=== PATIENT | female | born 1990 | race Caucasian/White ===

== ENCOUNTER 2018-12-17 08:13 | Day surgery (SDC) | payer OTHER ==
[~2018-12-17] VITALS: Ht 177.8 cm; Wt 97.1 kg
[~2018-12-17 08:13] MED LIST: LIDOCAINE 1% MDV 20ML VIAL SQ PRN; LR 1,000 ML IV ONE; NUVAMIS2 PV
[2018-12-17] MEDS ORDERED: PROPOFOL 200 MG/20 ML VIAL As Ordered ONE ×2 (08:21→09:33)
[2018-12-17] MEDS ORDERED: KETOROLAC 60 MG/2 ML VIAL (J1885) As Ordered ONE (08:21)
[2018-12-17 09:14] LABS: HCG, SERUM QUALITATIVE NEGATIVE (NEGATIVE)
[2018-12-17] MEDS ORDERED: LIDOCAINE 2% INJ 100 MG/5 ML SDV (FOR ANES.) As Ordered ONE (09:33)
[2018-12-17] MEDS ORDERED: ONDANSETRON 4MG/2ML VIAL (J2405) As Ordered ONE (09:35)
[2018-12-17] MEDS ORDERED: dexameTHASONE 4 MG/ML 1ML VIAL (J1100) As Ordered ONE (09:35)
[2018-12-17] MEDS ORDERED: MIDAZOLAM INJ 2 MG/2 ML VIAL (J2250) As Ordered ONE (09:35)
[2018-12-17] MEDS ORDERED: fentaNYL 100 MCG/2 ML INJECTION (J3010) As Ordered ONE ×3 (09:36→12:29)
[2018-12-17] MEDS ORDERED: ROCURONIUM BROMIDE 50 MG/5 ML VIAL As Ordered ONE ×2 (10:03→11:38)
[2018-12-17] MEDS ORDERED: SCOPOLAMINE 1MG TRANSDERMAL PATCH As Ordered ONE (10:21)
[2018-12-17] MEDS ORDERED: SCOPOLAMINE 1MG TRANSDERMAL PATCH TOP ONE (10:30)
[2018-12-17] MEDS ORDERED: SUGAMMADEX SODIUM 500 MG/5 ML VIAL (BRIDION) As Ordered ONE (11:38)
[2018-12-17] MEDS ORDERED: ACETAMINOPHEN 1000MG 100ML IV BTL (OFIRMEV) (J0131 PER 10MG) As Ordered ONE (11:53)
[2018-12-17] MEDS: fentaNYL 100 MCG/2 ML INJECTION (J3010) IV PRN ×6 (12:32→13:10)
[2018-12-17] MEDS ORDERED: LR 1,000 ML IV SCH (12:45)
[2018-12-17] MEDS ORDERED: PERCOCET 5MG/325MG TAB PO PRN (12:45)
[2018-12-17] MEDS ORDERED: ONDANSETRON 4MG/2ML VIAL (J2405) IV PRN (12:45)
[2018-12-17] MEDS ORDERED: NORCO, ANEXSIA 5/325MG TABLET (HYDROcodone/ACETAMINOPHEN) PO PRN (12:45)
[2018-12-17] MEDS ORDERED: IBUPROFEN 600 MG TAB PO PRN (12:45)
[2018-12-17 13:36] VITALS: BP 124/66
--- NOTE | 2018-12-18 15:30 | RO ---
DATE OF PROCEDURE: 12/17/2018 PREOPERATIVE DIAGNOSES: Bleeding, pain, desire for tubal ligation. POSTOPERATIVE DIAGNOSIS: Bleeding, pain, desire for tubal ligation. She did have some minor endometriosis noted, especially left pelvis. She also had some adhesions consistent with her previous surgical history, some of which were taken down incidentally. OPERATIVE PROCEDURE: Laparoscopy, lysis of adhesions, bilateral tubal ligation, D and C hysteroscopy and ablation. SURGEON: Nadine Vásquez MD [employer]: None ANESTHESIA: General endotracheal anesthesia. SPECIMENS: Endometrial curettings. BRIEF DESCRIPTION OF PROCEDURE AND FINDINGS: Toy was brought to the operating room where sufficient general endotracheal anesthesia was induced. She was prepped, draped and positioned in the usual sterile fashion. The uterus sounded to 8, giving an endometrial cavity length of 4. We later measured it at 4.4 for width, but of course at this point we only had length of 4. The uterine manipulator was placed, the bladder was emptied, and attention was turned to the abdomen. A transverse semilunar incision was made over the line of her previous umbilical transplantation site for her abdominoplasty. In the inferior aspect, a semilunar incision was made along that scar, and then we dissected inferiorly in order to reach the rectus fascia, which was transversely incised, secured with #0 Vicryl retention sutures, and then we entered the peritoneum under direct visualization. There were some adhesions inferiorly, but we were able to miss these, and go in under open laparoscopic technique with the Chiqui and secured in place with 0 Vicryl retention sutures. We then used the laparoscope to visualize the abdominal cavity, the peritoneal cavity was pictured as well. We did see the midline anterior subumbilical omental adhesions, some of those were fairly dense and it did not appear to be a hernia, just scarring there and we were not able to take all of those down, but they seemed broad enough that they are really not at risk for volvulus. We left those and went around them. She did have some adhesions of the descending colon and I used cold scissors to take some of those down so that we could have access to the tube. As you can see from the pictures, we were able to essentially spaghetti the tube up on the instruments so that we could see the fimbria even though there were quite a few adhesions. We also took some pictures in the left pelvis, some endometriotic implants. I tried to do the tube with the regular bipolar cautery, which the Alfreda was not working so we used an Enseal bipolar in multiple different sites on each tube, as is carefully documented in the photographs as well. After doing a good cauterization of the tubes, as already shown, we then moved on to the ablation. Of course we allowed the CO2 to escape the abdomen, removed the instruments, used the 0 Vicryl suture to close the fascial wound and then used 3-0 Vicryl at the skin and put a dry sterile dressing on and then turned our attention to the ablation. With the uterine manipulator removed, we placed the hysteroscope and we were able to visualize the endometrial cavity, which was reassuring. We did curettage and then placed the MyoSure ablative device, which again had length set at 4, width was measured at 4.4 and then set, and then having passed the cavity assessment, we went ahead and did an uncomplicated NovaSure ablation, and then the procedure was ended. Estimated blood loss for procedure about 5 mL. Fluid replacement with crystalloid. Complications none. CONDITION AND DISPOSITION: Toy tolerated the procedure well and was recovering in the recovery room in good condition.
== END 2018-12-17 14:00 | disposition home or self-care (01) ==
LOC: M SDC 08:13
PROVIDERS: ATTEND Obstetrics & Gynecology
DX: N92.0 Excessive and frequent menstruation with regular cycle (principal); R10.2 Pelvic and perineal pain; N73.6 Female pelvic peritoneal adhesions (postinfective); N80.9 Endometriosis, unspecified; Z30.2 Encounter for sterilization
CPT/HCPCS: 36415; 58356; 58670; 84703; 88305; J0131; J1100; J1885; J2250; J2405; J3010

== ENCOUNTER 2019-02-26 13:07 | Emergency (ER) | payer OTHER ==
[~2019-02-26] VITALS: Ht 177.8 cm; Wt 98.5 kg
[~2019-02-26 13:07] MED LIST changes: -LIDOCAINE 1% MDV 20ML VIAL SQ PRN; -LR 1,000 ML IV ONE
[2019-02-26] MEDS ORDERED: NS 1,000 ML IV ONE ×2 (15:45→17:30)
[2019-02-26] MEDS ORDERED: methylPREDNISolone INJ 125 MG/2 ML VIAL (J2930) IV ONE (15:45)
[2019-02-26] MEDS: IPRATROPIUM 0.5MG/ALBUTEROL 2.5MG INH SOL UD 3ML (DUONEB)(J7620) NEB PRN ×3 (15:50→17:03)
[2019-02-26 16:14] LABS: BASO % 0.1 % (0.0-1.0); HEMATOCRIT 42.4 % (36.0-47.0); HEMOGLOBIN 13.7 g/dl (12.0-15.5); LYMPH # 0.8 10^3/uL (1.5-5.0); LYMPH % 9.8 % (24.0-44.0); MEAN CORPUSCULAR HEMOGLOBIN 29.2 pg (27.0-33.0); MEAN CORPUSCULAR HGB CONC 32.3 g/dl (32.0-36.5); MEAN CORPUSCULAR VOLUME 90.4 fl (80.0-96.0); MONO # 0.2 10^3/uL (0.0-0.8); MONO % 2.2 % (0.0-5.0); NEUTROPHILS # 6.7 10^3/uL (1.5-8.5); NEUTROPHILS % 87.5 % (36.0-66.0); PLATELET COUNT, AUTOMATED 225 10^3/uL (150-450); RED BLOOD COUNT 4.69 10^6/uL (4.00-5.40); WHITE BLOOD COUNT 7.7 10^3/uL (4.0-10.0)
[2019-02-26 16:23] LABS: ALBUMIN 4.4 GM/DL (3.2-5.2); ALT/SGPT 72 U/L (12-78); BILIRUBIN,DIRECT 0.1 MG/DL (0.0-0.2); BILIRUBIN,TOTAL 0.3 MG/DL (0.2-1.0); BLOOD UREA NITROGEN 11 MG/DL (7-18); CALCIUM LEVEL 9.5 MG/DL (8.5-10.1); CARBON DIOXIDE LEVEL 27 MEQ/L (21-32); CHLORIDE LEVEL 107 MEQ/L (98-107); CREATININE FOR GFR 0.86 MG/DL (0.55-1.30); GLOMERULAR FILTRATION RATE > 60.0 (>60); GLUCOSE, FASTING 114 MG/DL (70-100); POTASSIUM SERUM 4.7 MEQ/L (3.5-5.1); SODIUM LEVEL 141 MEQ/L (136-145); TOTAL PROTEIN 8.6 GM/DL (6.4-8.2)
[2019-02-26 16:24] LABS: HCG, SERUM QUALITATIVE NEGATIVE (NEGATIVE)
[2019-02-26] MEDS ORDERED: ISOVUE-370 76% 100ML VIAL (Q9967) As Ordered ONE (17:29)
[2019-02-26] MEDS ORDERED: cefTRIAXone SOD 1 GM in D5W MINI-BAG PLUS 50 ML IV ONE (17:30)
[2019-02-26 17:50] VITALS: BP 130/61
--- NOTE | 2019-02-26 18:06 | REPVR ---
PROCEDURE INFORMATION: Exam: CT Angiography Chest With Contrast Exam date and time: 02/26/2019 5:27 PM Clinical history: 28 years old, female; Shortness of breath TECHNIQUE: Imaging protocol: Computed tomographic angiography of the chest with intravenous contrast. 3D rendering: MIP reconstructed images were created and reviewed. Radiation optimization: All CT scans at this facility use at least one of these dose optimization techniques: automated exposure control; mA and/or kV adjustment per patient size (includes targeted exams where dose is matched to clinical indication); or iterative reconstruction. Contrast material: ISOVUE 370; Contrast volume: 75 ml; Contrast route: IV; COMPARISON: CR Chest, 2 view PA, Lat 02/26/2019 4:02 PM FINDINGS: Pulmonary arteries: There are no pulmonary emboli. Aorta: There is no aortic dissection or aneurysm. Lungs: Airspace infiltrate in the left lower lobe consistent with a pneumonitis. Small calcified granuloma left lower lobe. Lungs otherwise clear. Pleural space: Unremarkable. No pneumothorax. No pleural effusion. Heart: Unremarkable. No cardiomegaly. No pericardial effusion. Lymph nodes: Unremarkable. No enlarged lymph nodes. Bones/joints: Unremarkable. No acute fracture. Soft tissues: Bilateral breast implants. IMPRESSION: 1. Airspace infiltrate in the left lower lobe consistent with a pneumonitis. 2. There is no aortic dissection or aneurysm. 3. There are no pulmonary emboli. Electronically signed by: Rodri Vincent On 02/26/2019 18:06:06 PM
[2019-02-26] MEDS ORDERED: PRED20TA PO (18:49)
[2019-02-26] MEDS ORDERED: PROV108A INH (18:51)
--- NOTE | 2019-02-26 19:15 | REP ---
CHEST: Two views. There is no evidence of acute infiltrate. No pleural effusion is seen. The heart is normal in size. The mediastinal silhouette is unremarkable. The visualized osseous structures are intact. IMPRESSION: No acute pulmonary disease. Electronically Signed by Doron Bustillos MD 03/01/2019 11:19 P
[2019-02-26] MEDS ORDERED: DOXY100C37 PO (23:03)
== END 2019-02-26 19:14 | disposition home or self-care (01) ==
LOC: M ED 13:07
DX: J18.9 Pneumonia, unspecified organism (principal)
CPT/HCPCS: 71046; 71275; 80048; 80076; 81001; 83605; 84703; 85025; 87040; 94640; 96361; 96365; 96375; 99284; J0696; J2930; Q9967